=== PATIENT | male | born 1990 | race Caucasian/White ===

== ENCOUNTER 2017-10-30 18:29 | Emergency (ER) | payer MEDICAID ==
[~2017-10-30] VITALS: Ht 172.7 cm; Wt 74.4 kg
[~2017-10-30 18:29] MED LIST: ALBU0.0939 IH
[2017-10-30 18:30] VITALS: BP 151/102
--- NOTE | 2017-10-30 18:46 | NUR ---
PT BIB [facility] [employer]. PT DENIES N/V/D; SKIN IS INTACT, PINK/WARM/DRY; AAOX4, PERRL, WITH EVEN AND STEADY GAIT; LUNGS CLEAR BL, BREATHING UNLABORED; HR EVEN AND REGULAR, BL PERIPHERAL PULSES PRESENT; PT DENIES ANY FEVER, CP, SOB, OR COUGH AT THIS TIME; PT STATES 5/10 PAIN AT THIS TIME AT AREAS OF TASER INFLICTION; VSS; PATIENT POSITIONED FOR COMFORT; HOB ELEVATED; BEDRAILS UP X2; BED DOWN.
--- NOTE | 2017-10-30 19:11 | NUR ---
REPORT GIVEN TO DEV PRESTON
--- NOTE | 2017-10-30 19:43 | NUR ---
Dr. Mcclendon evaluating patient
[2017-10-30] MEDS ORDERED: LIDOCAINE MPF 1% 5mL VIAL INJ ONE (20:00)
--- NOTE | 2017-10-30 20:05 | NUR ---
Dr. Mcclendon at bedside for tazer prong removal.
[2017-10-30] MEDS ORDERED: LIDOCAINE MPF 1% - 5 mL VIAL 5 ML ONE (20:06)
[2017-10-30 20:24] VITALS: BP 123/63
--- NOTE | 2017-10-30 20:24 | NUR ---
Patient discharged with v/s stable. Written and verbal after care instructions given and explained. Patient verbalized understanding. Discharged in custody of [facility]. All questions addressed prior to discharge. Advised to follow up with PMD. Original and copy of prebook form given to officers.
== END 2017-10-30 20:24 ==
LOC: MED 18:29
DX: Z02.89 Encounter for other administrative examinations (principal); S30.851A Superficial foreign body of abdominal wall, initial encounter; X58.XXXA Exposure to other specified factors, initial encounter; Y93.89 Activity, other specified; Y92.89 Other specified places as the place of occurrence of the external cause; Y99.8 Other external cause status
CPT/HCPCS: 10120; 99284; J2001

== ENCOUNTER 2017-11-08 18:01 | Emergency (ER) | payer MEDICAID ==
[~2017-11-08] VITALS: Ht 170.2 cm; Wt 104.3 kg
[2017-11-08 18:03] VITALS: BP 114/81
--- NOTE | 2017-11-08 18:11 | NUR ---
PATIENT IS A 26 YO MALE [facility].
[2017-11-08 19:14] VITALS: BP 114/81
--- NOTE | 2017-11-08 19:14 | NUR ---
Patient discharged with v/s stable. Written and verbal after care instructions given and explained. Patient verbalized understanding. Police with in custody. All questions addressed prior to discharge. Advised to follow up with PMD.
== END 2017-11-08 19:14 ==
LOC: MED 18:01
DX: Z02.89 Encounter for other administrative examinations (principal); J45.909 Unspecified asthma, uncomplicated; I10 Essential (primary) hypertension
CPT/HCPCS: 99283

== ENCOUNTER 2021-10-20 01:40 | Emergency (ER) | payer MEDICAID ==
[~2021-10-20] VITALS: Ht 167.6 cm; Wt 77.1 kg
[2021-10-20 01:40] VITALS: BP 114/74
--- NOTE | 2021-10-20 01:40 | NUR ---
PT OFFLOADED TO [facility]
--- NOTE | 2021-10-20 04:34 | NUR ---
CALLED OUT FOR PT WITH NO RESPONSE. PT DID NOT APPEAR TO BE IN LOBBY OR OUTSIDE.
--- NOTE | 2021-10-20 04:57 | NUR ---
PT CALLED IN LOBBY AND OUTSIDE WITH NO ANSWER. PATIENT LEFT WITHOUT BEING SEEN BY DR. ROE. NO FURTHER CARE PROVIDED FOR PATIENT.
== END 2021-10-20 04:34 | disposition left against medical advice (07) ==
LOC: MED 01:40
DX: F17.200 Nicotine dependence, unspecified, uncomplicated (principal); Z53.21 Procedure and treatment not carried out due to patient leaving prior to being seen by health care provider

== ENCOUNTER 2022-05-28 14:23 | Emergency (ER) | payer MEDICAID ==
[~2022-05-28] VITALS: Ht 170.2 cm; Wt 86.2 kg
[2022-05-28 14:29] VITALS: BP 135/77
--- NOTE | 2022-05-28 14:32 | NUR ---
Patient being evaluated by Dr. Banks at bedside.
--- NOTE | 2022-05-28 15:13 | NUR ---
Patient was taken to CT via wheelchair.
--- NOTE | 2022-05-28 15:26 | NUR ---
pt returned from ct
--- NOTE | 2022-05-28 15:27 | NUR ---
[place] [employer] at bedside.
[2022-05-28 16:48] VITALS: BP 135/77
--- NOTE | 2022-05-28 16:48 | NUR ---
PT REMOVED IV, LEFT IV CATH AT BEDSIDE AND WALKED THROUGH AMBULANCE BAY, LEFT WITHOUT DX PAPERWORK
== END 2022-05-28 16:48 | disposition home or self-care (01) ==
LOC: MED 14:23
DX: S11.91XA Laceration without foreign body of unspecified part of neck, initial encounter (principal); S09.90XA Unspecified injury of head, initial encounter; J45.909 Unspecified asthma, uncomplicated; I10 Essential (primary) hypertension; Z79.899 Other long term (current) drug therapy; Y04.8XXA Assault by other bodily force, initial encounter; Y93.89 Activity, other specified; Y92.89 Other specified places as the place of occurrence of the external cause; Y99.8 Other external cause status
CPT/HCPCS: 70450; 70498; 99285; Q9967